=== PATIENT | male | born 1965 | race Caucasian/White ===

== ENCOUNTER → 2016-10-16 | Outpatient (CLI) | payer OTHER ==
[~2016-10-16] MED LIST: LORTAB 5-325 M1 EACH PO; NEURONTIN 300300 MG PO; NORVASC 5 MG TAB5 MG PO; PERCOCET 7.5-31 EACH PO; SYNTHROID50 MCG PO; VENTOLIN HFA 66.7 GM INH; ZYLOPRIM 100 M100 MG PO
[2016-10-16 08:42] LABS: RED BLOOD COUNT 4.78 M/UL (4.20-5.50); WHITE BLOOD COUNT 5.8 K/UL (4.5-11.0)
[2016-10-16 08:59] LABS: BUN/CREATININE RATIO 12 (0-10)
== END ==
LOC: OPSV2 10-09 09:00
PROVIDERS: Orthopaedic Surgery
DX: Z01.812 Encounter for preprocedural laboratory examination (principal); M1A.9XX1 Chronic gout, unspecified, with tophus (tophi)
CPT/HCPCS: 36415; 80048; 85027

== ENCOUNTER → 2016-10-23 | Day surgery (SDC) | payer OTHER ==
[~2016-10-23] VITALS: Ht 167.6 cm; Wt 108.9 kg
== END | disposition home or self-care (01) ==
LOC: OR 10-20 09:45
PROVIDERS: Orthopaedic Surgery
PROC: 0MB30ZZ Excision of Right Elbow Bursa and Ligament, Open Approach (ICD-10-PCS; principal; 2016-10-23 11:00)
DX: M1A.0211 Idiopathic chronic gout, right elbow, with tophus (tophi) (principal); I10 Essential (primary) hypertension; J45.909 Unspecified asthma, uncomplicated; E07.9 Disorder of thyroid, unspecified; G89.29 Other chronic pain; Z90.49 Acquired absence of other specified parts of digestive tract; Z96.653 Presence of artificial knee joint, bilateral; Z79.891 Long term (current) use of opiate analgesic; Z79.899 Other long term (current) drug therapy; Z87.01 Personal history of pneumonia (recurrent)
CPT/HCPCS: 94664; J0690; J2250; J3010; J7120

== ENCOUNTER 2021-05-25 23:59 | Inpatient (IN) | payer OTHER ==
[~2021-05-25] VITALS: Ht 175.3 cm; Wt 99.8 kg
[~2021-05-25 23:59] MED LIST changes: +BACTRIM DS TAB1 EACH PO; +KETOROLAC TROME10 MG PO; +MEDROL DOSEPAK 24 MG PO
[2021-05-26 00:59] LABS: HEMOGLOBIN 10.7 gm/dl (14.0-17.5); RED BLOOD COUNT 3.81 M/UL (4.20-5.50); WHITE BLOOD COUNT 16.5 K/UL (4.5-11.0)
[2021-05-26 01:56] LABS: BUN/CREATININE RATIO 25 (0-10)
[2021-05-26 22:01] LABS: HEMOGLOBIN 11.1 gm/dl (14.0-17.5); RED BLOOD COUNT 3.98 M/UL (4.20-5.50)
[2021-05-26 22:03] LABS: WHITE BLOOD COUNT 9.5 K/UL (4.5-11.0)
[2021-05-26 22:27] LABS: BUN/CREATININE RATIO 19 (0-10)
[2021-05-26] MEDS ORDERED: HYDROCODON-ACE1 EAC6 PO (22:48)
[2021-05-27 00:30] LABS: ACINETOBACTER BAUMANNII Not Detected (Negative); CANDIDA ALBICANS Not Detected (Negative); CANDIDA KRUSEI Not Detected (Negative); CANDIDA TROPICALIS Not Detected (Negative); ENTEROCOCCUS Not Detected (Negative); ESCHERICHIA COLI Not Detected (Negative); HAEMOPHILUS INFLUENZAE Not Detected (Negative); KLEBSIELLA OXYTOCA Not Detected (Negative); KLEBSIELLA PNEUMONIAE Not Detected (Negative); KPC-CARBAPENEM-RESISTANCE GENE Not Detected (Negative); PROTEUS Not Detected (Negative); PSEUDOMONAS AERUGINOSA Not Detected (Negative); SERRATIA MARCESANS Not Detected (Negative); STREP AGALACTIAE (GROUP B) Not Detected (Negative); STREP PYOGENES (GROUP A) Not Detected (Negative); STREPTOCOCCUS Not Detected (Negative); mecA (METHICILLIN RESIST GENE Not Detected (Negative); vanA/B (VANCOMYCIN RESIST GENE Not Detected (Negative)
--- NOTE | 2021-05-27 00:38 | NUR ---
AT 2130 ON 05/26/21 PT CALLED OUT IN PAIN. I WENT IN THE PT. STATED HIS HAND WAS GETTING TIGHTER AND WAS IN EXTREME PAIN. I CONTACTED THE DOCTOR HE STATED TO ELEVATE HAND AND PLACE ICE PACKS. I ASKED ANOTHER NURSE TO ASSESS WITH ME. I CONTACTED DR. CHRISTOPHER AND HE STATED TO PUT ICE ON IT AND ELEVATE. I TOLD HIM WHEN ME AND THE OTHER NURSE EVALUATED THAT WE WAS AFRAID HE HAD COMPARTMENT SYNDROME. I CONTACTED DR. MIX AGAIN AND HE CAME UP AND EVALUATED THE ARM AND CALLED DR. CHRISTOPHER. DR. CHRISTOPHER CAME IN AND ASSESSED THE ARM AND FRANKLYN FLUID OFF FOR CULTURES AND TOOK THE PT DOWN TO SURGERY.
[2021-05-27 02:02] LABS: STAPHYLOCOCCUS DETECTED (Negative); STAPHYLOCOCCUS AUREUS DETECTED (Negative)
[2021-05-27 04:14] LABS: HEMOGLOBIN 10.6 gm/dl (14.0-17.5); RED BLOOD COUNT 3.85 M/UL (4.20-5.50); WHITE BLOOD COUNT 9.4 K/UL (4.5-11.0)
[2021-05-27 04:23] LABS: BUN/CREATININE RATIO 20 (0-10)
[2021-05-28 05:59] LABS: BUN/CREATININE RATIO 25 (0-10); HEMOGLOBIN 10.4 gm/dl (14.0-17.5); RED BLOOD COUNT 3.74 M/UL (4.20-5.50)
[2021-05-29 06:28] LABS: HEMOGLOBIN 9.2 gm/dl (14.0-17.5); RED BLOOD COUNT 3.44 M/UL (4.20-5.50); WHITE BLOOD COUNT 8.4 K/UL (4.5-11.0)
[2021-05-29 06:44] LABS: BUN/CREATININE RATIO 26 (0-10)
[2021-05-30 06:24] LABS: HEMOGLOBIN 9.9 gm/dl (14.0-17.5); RED BLOOD COUNT 3.6 M/UL (4.20-5.50)
[2021-05-30 06:31] LABS: WHITE BLOOD COUNT 12.5 K/UL (4.5-11.0)
[2021-05-30 06:54] LABS: BUN/CREATININE RATIO 22 (0-10)
[2021-05-30] MEDS ORDERED: HYDROCODON-ACE1 EAC6 PO (13:40)
[2021-05-30] MEDS ORDERED: NORFLEX 100 MG100 MG PO (13:42)
[2021-05-30] MEDS ORDERED: FOLIC ACID 1 MG1 MG PO (13:48)
[2021-05-30] MEDS ORDERED: MELATONIN3 MG PO (13:49)
[2021-05-30] MEDS ORDERED: SYMBICORT 16010.2 GM INH (13:50)
[2021-05-30] MEDS ORDERED: PROVENTIL HFA6.7 GM INH (13:53)
[2021-05-30] MEDS ORDERED: HYGROTON TAB 2525 MG PO (13:56)
[2021-05-30] MEDS ORDERED: ALLOPURINOL300 MG PO (13:59)
[2021-05-30] MEDS ORDERED: LISINOPRIL10 MG PO (14:00)
[2021-05-30] MEDS ORDERED: NORVASC5 MG PO (14:28)
--- NOTE | 2021-05-30 15:09 | NUR ---
13At0pf midline placed in the right basilic vein via ultrasound guidance. Aspirates and flushes easily. Reference # [id number]
[2021-05-31 06:12] LABS: BUN/CREATININE RATIO 18 (0-10)
[2021-05-31 06:17] LABS: HEMOGLOBIN 10.2 gm/dl (14.0-17.5); RED BLOOD COUNT 3.79 M/UL (4.20-5.50)
[2021-05-31 06:20] LABS: WHITE BLOOD COUNT 16.2 K/UL (4.5-11.0)
[2021-05-31] MEDS ORDERED: CUBICIN 500 MG500 MG INJ (08:29)
[2021-05-31] MEDS ORDERED: LEVOTHYROXINE50 MCG PO (08:29)
[2021-06-01 04:23] LABS: HEMOGLOBIN 9.8 gm/dl (14.0-17.5); RED BLOOD COUNT 3.61 M/UL (4.20-5.50); WHITE BLOOD COUNT 16.1 K/UL (4.5-11.0)
[2021-06-01 04:37] LABS: BUN/CREATININE RATIO 22 (0-10)
[2021-06-02 04:06] LABS: HEMOGLOBIN 9.4 gm/dl (14.0-17.5); RED BLOOD COUNT 3.46 M/UL (4.20-5.50); WHITE BLOOD COUNT 12.8 K/UL (4.5-11.0)
[2021-06-02 04:31] LABS: BUN/CREATININE RATIO 23 (0-10)
[2021-06-02] MEDS ORDERED: CUBICIN 500 MG500 MG INJ (14:31)
--- NOTE | 2021-06-02 16:23 | NUR ---
20G X 8 CM MIDLINE PLACED IN RIGHT BASILIC VEIN. UNABLE TO THREAD 1ST MIDLINE. PREVIOUS MIDLINE PLACED ON 05/30 WAS PULLED OUT ACCIDENTALLY BY PT.
== END 2021-06-02 17:26 | disposition home health service (06) | DRG 853 ==
LOC: ER1 23:59 → CDU 05-26 02:21 → M/S 05-26 02:21
PROVIDERS: Internal Medicine; Orthopaedic Surgery; Physician Assistant; ADMIT Internal Medicine
PROC: 0KND0ZZ Release Left Hand Muscle, Open Approach (ICD-10-PCS; 2021-05-26)
PROC: 0KND0ZZ Release Left Hand Muscle, Open Approach (ICD-10-PCS; 2021-05-26)
PROC: 0KND0ZZ Release Left Hand Muscle, Open Approach (ICD-10-PCS; 2021-05-26)
PROC: 0KND0ZZ Release Left Hand Muscle, Open Approach (ICD-10-PCS; 2021-05-26)
PROC: 0KND0ZZ Release Left Hand Muscle, Open Approach (ICD-10-PCS; 2021-05-26)
PROC: 01N50ZZ Release Median Nerve, Open Approach (ICD-10-PCS; 2021-05-26)
PROC: 0KBB0ZZ Excision of Left Lower Arm and Wrist Muscle, Open Approach (ICD-10-PCS; 2021-05-28)
PROC: B24BZZZ Ultrasonography of Heart with Aorta (ICD-10-PCS; principal; 2021-05-30)
PROC: 0J9H0ZZ Drainage of Left Lower Arm Subcutaneous Tissue and Fascia, Open Approach (ICD-10-PCS; 2021-06-01)
PROC: 02PYX3Z Removal of Infusion Device from Great Vessel, External Approach (ICD-10-PCS; 2021-06-01)
PROC: 02HV33Z Insertion of Infusion Device into Superior Vena Cava, Percutaneous Approach (ICD-10-PCS; 2021-06-01)
PROC: B548ZZA Ultrasonography of Superior Vena Cava, Guidance (ICD-10-PCS; 2021-06-01)
DX: A41.01 Sepsis due to Methicillin susceptible Staphylococcus aureus (principal); M72.6 Necrotizing fasciitis; L02.512 Cutaneous abscess of left hand; Z20.822 Contact with and (suspected) exposure to COVID-19; M79.A12 Nontraumatic compartment syndrome of left upper extremity; L03.113 Cellulitis of right upper limb; E87.1 Hypo-osmolality and hyponatremia; M65.142 Other infective (teno)synovitis, left hand; G56.02 Carpal tunnel syndrome, left upper limb; I10 Essential (primary) hypertension; E66.01 Morbid (severe) obesity due to excess calories; K21.9 Gastro-esophageal reflux disease without esophagitis; I95.9 Hypotension, unspecified; E11.9 Type 2 diabetes mellitus without complications; B95.1 Streptococcus, group B, as the cause of diseases classified elsewhere; I08.1 Rheumatic disorders of both mitral and tricuspid valves; M10.041 Idiopathic gout, right hand; E03.9 Hypothyroidism, unspecified; Z96.653 Presence of artificial knee joint, bilateral; Z90.49 Acquired absence of other specified parts of digestive tract; Z82.49 Family history of ischemic heart disease and other diseases of the circulatory system; Z79.4 Long term (current) use of insulin; Z68.32 Body mass index [BMI] 32.0-32.9, adult
CPT/HCPCS: ECHO; 36415; 71045; 73130; 73218; 80048; 80053; 80202; 82550; 82553; 82962; 83605; 83874; 84439; 84443; 84484; 84550; 85025; 85027; 85652; 86140; 87040; 87070; 87077; 87150; 87186; 87205; 93005; 93306; 94640; 94664; 94760; 96365; 96367; 99284; C1751; J0690; J0696; J0878; J1100; J1170; J1885; J2001; J2250; J2270; J2370; J2405; J2543; J2704; J2765; J2795; J3010; J3370; J7030; J7070; J7120; U0002

== ENCOUNTER 2021-06-06 17:54 | Emergency (ER) | payer OTHER ==
[~2021-06-06 17:54] MED LIST changes: +ALLOPURINOL300 MG PO; +CUBICIN 500 MG500 MG INJ; +FOLIC ACID 1 MG1 MG PO; +HYDROCODON-ACE1 EAC6 PO; +HYGROTON TAB 2525 MG PO; +LEVOTHYROXINE50 MCG PO; +LISINOPRIL10 MG PO; +MELATONIN3 MG PO; +NORFLEX 100 MG100 MG PO; +NORVASC5 MG PO; +PROVENTIL HFA6.7 GM INH; +SYMBICORT 16010.2 GM INH
[2021-06-16] MEDS ORDERED: HYDROCODON-ACE1 EAC6 PO (16:56)
== END 2021-06-06 19:54 | disposition left against medical advice (07) ==
LOC: ER1 17:54
DX: Z53.21 Procedure and treatment not carried out due to patient leaving prior to being seen by health care provider (principal)

== ENCOUNTER → 2021-06-16 | Day surgery (SDC) | payer OTHER ==
[~2021-06-16] VITALS: Ht 175.3 cm; Wt 98.0 kg
== END | disposition home or self-care (01) ==
LOC: OR 09:48 → EDSTATUS 13:15 → OR 13:15
DX: M79.A12 Nontraumatic compartment syndrome of left upper extremity (principal); I10 Essential (primary) hypertension; M10.9 Gout, unspecified; E07.9 Disorder of thyroid, unspecified; J45.909 Unspecified asthma, uncomplicated; Z79.899 Other long term (current) drug therapy; Z20.822 Contact with and (suspected) exposure to COVID-19
CPT/HCPCS: J0690; J1100; J1885; J2001; J2250; J2405; J2704; J3010; J3370; J7030; J7120

== ENCOUNTER → 2021-09-12 | Outpatient (CLI) | payer OTHER | LOC: KOH-I 15:30 | DX: M25.561 Pain in right knee (principal) | CPT/HCPCS: 73700 ==

== ENCOUNTER → 2021-11-16 | Outpatient (CLI) | payer OTHER ==
[~2021-11-16] MED LIST changes: +HYDRALAZINE HCL25 MG PO; +HYDROCODON-ACE1 EAC2 PO; +IPRAT-ALBUT 0.5-3 ML INH
[2021-11-16 10:13] LABS: HEMOGLOBIN 10.9 gm/dl (14.0-17.5); RED BLOOD COUNT 4.2 M/UL (4.20-5.50)
[2021-11-16 10:33] LABS: BUN/CREATININE RATIO 11 (0-10)
== END ==
LOC: OPSV2 09:00
PROVIDERS: Orthopaedic Surgery
DX: Z01.818 Encounter for other preprocedural examination (principal)
CPT/HCPCS: 71046; 80048; 85027; 85652; 86140; 93005

== ENCOUNTER → 2021-12-08 | Outpatient (CLI) | payer OTHER ==
[~2021-12-08] MED LIST changes: +FOLIC ACID1 MG PO; +LISINOPRIL20 MG PO; +NEURONTIN400 MG PO; +NORVASC10 MG PO
== END ==
LOC: HEART 5 08:13
DX: R94.31 Abnormal electrocardiogram [ECG] [EKG] (principal); R07.9 Chest pain, unspecified; R94.39 Abnormal result of other cardiovascular function study; I10 Essential (primary) hypertension
CPT/HCPCS: 78452; A9502; J2785

== ENCOUNTER → 2021-12-23 | Outpatient (CLI) | payer OTHER ==
[~2021-12-23] MED LIST changes: +CHLORTHALIDONE25 MG PO
[2021-12-23 11:45] LABS: HEMOGLOBIN 10.7 gm/dl (14.0-17.5); RED BLOOD COUNT 4.16 M/UL (4.20-5.50); WHITE BLOOD COUNT 8.6 K/UL (4.5-11.0)
[2021-12-23 12:24] LABS: BUN/CREATININE RATIO 22 (0-10)
== END ==
LOC: OPSV2 10:00 → EDSTATUS 10:00 → OPSV2 10:30
PROVIDERS: Orthopaedic Surgery
DX: Z01.812 Encounter for preprocedural laboratory examination (principal); M25.561 Pain in right knee
CPT/HCPCS: 36415; 80048; 83036; 85027; 85652; 86140

== ENCOUNTER → 2022-01-02 | Outpatient (CLI) | payer OTHER ==
[~2022-01-02] MED LIST changes: +CYCLOBENZAPRINE10 MG PO; +ELIQUIS2.5 MG PO; +ENDOCET 7.5-321 EACH PO; +ZOFRAN 4 MG TAB4 MG PO
== END ==
LOC: LAB 09:23
DX: Z01.812 Encounter for preprocedural laboratory examination (principal)
CPT/HCPCS: 36415; 86850; 86900; 86901

== ENCOUNTER 2022-01-03 06:49 | Inpatient (IN) | payer OTHER ==
[~2022-01-03] VITALS: Ht 167.6 cm; Wt 100.7 kg
[~2022-01-03 06:49] MED LIST changes: -CYCLOBENZAPRINE10 MG PO; -ELIQUIS2.5 MG PO; -ENDOCET 7.5-321 EACH PO; -ZOFRAN 4 MG TAB4 MG PO
[2022-01-03] MEDS ORDERED: ZOFRAN 4 MG TAB4 MG PO (11:13)
[2022-01-03] MEDS ORDERED: ELIQUIS2.5 MG PO (11:13)
[2022-01-03] MEDS ORDERED: CYCLOBENZAPRINE10 MG PO ×2 (11:13→16:40)
[2022-01-03] MEDS ORDERED: ENDOCET 7.5-321 EACH PO (11:13)
[2022-01-03 12:24] LABS: MONONUCLEAR CELLS 76.1 %; POLYMORPHONUCLEAR 23.9 %; RBC (AUTOMATED) 10600 10^6; WBC (AUTOMATED) 1911 10^3
[2022-01-04 04:52] LABS: HEMOGLOBIN 9.4 gm/dl (14.0-17.5); RED BLOOD COUNT 3.58 M/UL (4.20-5.50); WHITE BLOOD COUNT 9.9 K/UL (4.5-11.0)
[2022-01-04 05:21] LABS: BUN/CREATININE RATIO 24 (0-10)
[2022-01-05 05:31] LABS: HEMOGLOBIN 8.4 gm/dl (14.0-17.5); RED BLOOD COUNT 3.34 M/UL (4.20-5.50); WHITE BLOOD COUNT 7.9 K/UL (4.5-11.0)
[2022-01-05 05:32] LABS: BUN/CREATININE RATIO 29 (0-10)
[2022-01-06 02:28] LABS: HEMOGLOBIN 8.7 gm/dl (14.0-17.5); RED BLOOD COUNT 3.36 M/UL (4.20-5.50); WHITE BLOOD COUNT 7.4 K/UL (4.5-11.0)
[2022-01-06 02:47] LABS: BUN/CREATININE RATIO 25 (0-10)
[2022-01-07 06:02] LABS: HEMOGLOBIN 8.7 gm/dl (14.0-17.5); RED BLOOD COUNT 3.35 M/UL (4.20-5.50); WHITE BLOOD COUNT 7.4 K/UL (4.5-11.0)
[2022-01-07 06:32] LABS: BUN/CREATININE RATIO 19 (0-10)
[2022-01-08 06:04] LABS: HEMOGLOBIN 9.2 gm/dl (14.0-17.5); RED BLOOD COUNT 3.58 M/UL (4.20-5.50); WHITE BLOOD COUNT 7.3 K/UL (4.5-11.0)
[2022-01-08 06:54] LABS: BUN/CREATININE RATIO 17 (0-10)
[2022-01-09 02:49] LABS: HEMOGLOBIN 9.1 gm/dl (14.0-17.5); RED BLOOD COUNT 3.55 M/UL (4.20-5.50); WHITE BLOOD COUNT 7.9 K/UL (4.5-11.0)
[2022-01-09 03:22] LABS: BUN/CREATININE RATIO 21 (0-10)
== END 2022-01-09 14:52 | disposition home health service (06) | DRG 467 ==
LOC: OR 06:49 → CCU 15:38 → M/S 18:07
PROVIDERS: Internal Medicine; Physician Assistant; ADMIT Orthopaedic Surgery
PROC: 0SRV0JA Replacement of Right Knee Joint, Tibial Surface with Synthetic Substitute, Uncemented, Open Approach (ICD-10-PCS; 2022-01-03)
PROC: 0SPV0JZ Removal of Synthetic Substitute from Right Knee Joint, Tibial Surface, Open Approach (ICD-10-PCS; principal; 2022-01-03 10:45)
DX: T84.032A Mechanical loosening of internal right knee prosthetic joint, initial encounter (principal); D62 Acute posthemorrhagic anemia; Y83.8 Other surgical procedures as the cause of abnormal reaction of the patient, or of later complication, without mention of misadventure at the time of the procedure; Z20.822 Contact with and (suspected) exposure to COVID-19; I10 Essential (primary) hypertension; E03.9 Hypothyroidism, unspecified; F32.A Depression, unspecified; M10.9 Gout, unspecified; E66.9 Obesity, unspecified; K21.9 Gastro-esophageal reflux disease without esophagitis; E78.5 Hyperlipidemia, unspecified; J45.909 Unspecified asthma, uncomplicated; Z82.5 Family history of asthma and other chronic lower respiratory diseases; Z56.0 Unemployment, unspecified; Z98.890 Other specified postprocedural states; Z90.49 Acquired absence of other specified parts of digestive tract; Z83.3 Family history of diabetes mellitus
CPT/HCPCS: 36415; 73552; 73560; 73562; 80048; 80202; 82550; 82945; 85025; 85027; 86140; 87070; 87205; 89051; 94640; 94664; 94760; 97110-GP-CQ; 97116; 97116-GP-CQ; 97161; 97165; 97530; 97535; C1713; C1751; C1762; C1776; J0690; J0878; J1100; J1644; J1885; J2001; J2250; J2270; J2370; J2405; J2704; J2710; J2795; J3010; J3370; J7030; J7070

== ENCOUNTER 2022-01-20 01:09 | Inpatient (IN) | payer OTHER ==
[~2022-01-20] VITALS: Ht 167.6 cm; Wt 104.3 kg
[~2022-01-20 01:09] MED LIST changes: +CYCLOBENZAPRINE10 MG PO; +ELIQUIS2.5 MG PO; +ENDOCET 7.5-321 EACH PO; +ZOFRAN 4 MG TAB4 MG PO
[2022-01-20] MEDS ORDERED: CUBICIN 500 MG500 MG PO (02:25)
[2022-01-20 03:05] LABS: HEMOGLOBIN 8.2 gm/dl (14.0-17.5); RED BLOOD COUNT 3.25 M/UL (4.20-5.50); WHITE BLOOD COUNT 8.8 K/UL (4.5-11.0)
[2022-01-20 03:19] LABS: BUN/CREATININE RATIO 20 (0-10)
[2022-01-21 03:56] LABS: HEMOGLOBIN 8.3 gm/dl (14.0-17.5); RED BLOOD COUNT 3.26 M/UL (4.20-5.50)
[2022-01-21 04:06] LABS: BUN/CREATININE RATIO 16 (0-10)
== END 2022-01-21 12:38 | disposition home health service (06) | DRG 816 ==
LOC: 2 EAST 01:09 → M/S 02:07 → CCU 02:07 → M/S 09:27
PROVIDERS: Internal Medicine; ADMIT Internal Medicine
DX: D72.819 Decreased white blood cell count, unspecified (principal); D64.9 Anemia, unspecified; J60 Coalworker's pneumoconiosis; Z20.822 Contact with and (suspected) exposure to COVID-19; I10 Essential (primary) hypertension; M10.9 Gout, unspecified; Z96.653 Presence of artificial knee joint, bilateral; Z79.01 Long term (current) use of anticoagulants; R50.9 Fever, unspecified; F32.A Depression, unspecified; K21.9 Gastro-esophageal reflux disease without esophagitis; J45.909 Unspecified asthma, uncomplicated; Z82.49 Family history of ischemic heart disease and other diseases of the circulatory system; E03.9 Hypothyroidism, unspecified; Z83.6 Family history of other diseases of the respiratory system; Z90.49 Acquired absence of other specified parts of digestive tract; Z98.890 Other specified postprocedural states; Z83.3 Family history of diabetes mellitus; Z79.899 Other long term (current) drug therapy
CPT/HCPCS: 36415; 71045; 80048; 80202; 83605; 83880; 85025; 85027; 85652; 86140; 87040; 87070; 94640; 94664; 97116; 97162; 97165; J0696; J3370; J7070

== ENCOUNTER → 2022-02-23 | Outpatient (CLI) | payer OTHER ==
[~2022-02-23] MED LIST changes: +CUBICIN 500 MG500 MG PO
[2022-02-23 11:47] LABS: HEMOGLOBIN 9.2 gm/dl (14.0-17.5); RED BLOOD COUNT 3.7 M/UL (4.20-5.50); WHITE BLOOD COUNT 6.8 K/UL (4.5-11.0)
== END ==
LOC: LAB 10:56
PROVIDERS: Orthopaedic Surgery
DX: M00.9 Pyogenic arthritis, unspecified (principal)
CPT/HCPCS: 36415; 85027; 85652; 86140